=== PATIENT | male | born 1950 | race Caucasian/White ===

== ENCOUNTER → 2019-03-28 13:11 | Outpatient (CLI) | payer MEDICARE, OTHER, SELFPAY ==
--- NOTE | 2019-03-28 13:20 | DI.RAD.S_ITS ---
PROCEDURE: XR FOOT RT MIN 3V INDICATIONS: r/o fracture TECHNIQUE: 3 views of the foot were acquired. COMPARISON: None. FINDINGS: Bones: No fractures or dislocations. No suspicious bony lesions. Slight deformity of the second metatarsal head articular surface. Diffuse interphalangeal degenerative changes. Mild first MTP joint degeneration. Chronic os peroneum. Plantar and posterior calcaneal spurring. He related the plantar cortex of the distal phalanx of the great toe probably secondary to Mach effect artifact although recommend correlation with point tenderness. Soft tissues: No tibiotalar joint effusion. Achilles tendon appears normal. IMPRESSION: No definite fracture identified although please see comment above regarding the distal phalanx of the great toe. If the patient's pain or other symptoms persist, consider further evaluation with MRI Plantar and posterior calcaneal spurs Slight irregularity of the second metatarsal head articular surface raising possibility of early Freiberg's infraction although age-indeterminate finding. Dictated by: Danilo Velázquez M.D. on 03/28/2019 at 13:58 Approved by: Danilo Velázquez M.D. on 03/28/2019 at 14:01
--- NOTE | 2019-03-28 13:20 | DI.RAD.S_ITS ---
PROCEDURE: XR ANKLE RT MIN 3V INDICATIONS: r/o fracture TECHNIQUE: 3 views of the ankle were acquired. COMPARISON: None. FINDINGS: Bones: No fractures or dislocations. Ankle mortise is normally aligned. No suspicious bony lesions. Chronic appearing ossicles projecting at the tip the lateral malleolus with some cortication although technically age-indeterminate. Plantar and posterior calcaneal spurring. Soft tissues: No tibiotalar joint effusion. Achilles tendon appears normal. IMPRESSION: Multiple subcentimeter ossicles projecting at the tip of the lateral malleolus, potentially fracture fragments although technically age-indeterminate (radiographically these may be chronic) recommend correlation for point tenderness. Posterior and plantar calcaneal spurs. Dictated by: Danilo Velázquez M.D. on 03/28/2019 at 13:56 Approved by: Danilo Velázquez M.D. on 03/28/2019 at 13:58
== END ==
PROVIDERS: Family Provider Physician Assistant Medical; PCP Physician Assistant Medical; Referring Provider Podiatrist; Visit Provider Physician Assistant
DX: S99.921A Unspecified injury of right foot, initial encounter (principal); M77.31 Calcaneal spur, right foot; X58.XXXA Exposure to other specified factors, initial encounter
CPT/HCPCS: 73610; 73630